=== PATIENT | male | born 1960 | race Caucasian/White ===

== ENCOUNTER 2021-12-25 08:30 | Observation (INO) ==
[~2021-12-25 08:30] MED LIST: *HR* FentaNYL (PF) 100 MCG/2 ML VIAL ONE; *HR* Propofol 200 MG/20 ML VIAL IVP ONE; Lidocaine -MPF 2% 5 ML VIAL ONE
[2021-12-25] MEDS ORDERED: Bupivacaine/EPI 1:200k 0.25% 50 ML VIAL ONE (08:39)
[2021-12-25] MEDS ORDERED: *HR* OxyCODONE Immed Rel 5 MG TABLET PO ONE (08:45)
[2021-12-25] MEDS ORDERED: Famotidine 20 MG TABLET PO ONE (08:45)
[2021-12-25] MEDS ORDERED: tiZANidine 4 MG TABLET PO SCH (09:00)
[2021-12-25] MEDS ORDERED: *HR* Rocuronium Bromide 50 MG/5 ML VIAL ONE (09:01)
[2021-12-25] MEDS ORDERED: *HR* Remifentanil 1 MG VIAL IVP ONE (09:01)
[2021-12-25] MEDS ORDERED: Promethazine 6.25 MG in Water for inj. (sterile) 20 ML IVPB PRN (09:10)
[2021-12-25] MEDS ORDERED: Ondansetron 4 MG/2 ML VIAL IVP PRN ×2 (09:10→12:40)
[2021-12-25] MEDS ORDERED: *HR* HYDROmorphone PF 0.5 MG/0.5 ML SYRINGE IVP PRN (09:10)
[2021-12-25] MEDS ORDERED: Albuterol 2.5 MG/3 ML NEBULIZER IH PRN (09:10)
[2021-12-25] MEDS ORDERED: *HR* OxyCODONE Immed Rel 5 MG TABLET PO PRN (09:10)
[2021-12-25] MEDS ORDERED: *HR* Labetalol 20 MG/4 ML SYRINGE IVP PRN (09:10)
[2021-12-25] MEDS ORDERED: CeFAZolin Syr 2,000MG/20 ML 2,000 MG/20 ML SYRINGE IVPB ONE (09:20)
[2021-12-25] MEDS ORDERED: Albuterol 2.5 MG/3 ML NEBULIZER IH ONE (09:20)
[2021-12-25] MEDS ORDERED: Ondansetron 4 MG/2 ML VIAL ONE (09:23)
[2021-12-25] MEDS ORDERED: Ringers Solution, Lactated 1,000 ML IVC SCH ×2 (09:30→12:40)
[2021-12-25 11:53] LABS: Basophils # 0.1 K/mcL (0.0-0.2); Basophils % 0.7 %; Eosinophils # 0.1 K/mcL (0.0-0.6); Eosinophils % 1.3 %; Hematocrit 46.5 % (37.5-50.1); Hemoglobin 15.3 g/dL (12.9-16.9); Immature Granulocytes % 0.5 % (0-4); Lymphocytes # 2.3 K/mcL (0.6-4.6); Lymphocytes % 30.4 %; Mean Corpuscular HGB Conc 32.9 g/dL (31.6-35.5); Mean Corpuscular Hemoglobin 30.4 pg (28.0-33.3); Mean Corpuscular Volume 92.3 fL (83.0-100.0); Mean Platelet Volume 10.3 fL (9.4-12.4); Monocytes # 0.6 K/mcL (0.0-1.3); Monocytes % 8.1 %; Neutrophils # 4.4 K/mcL (1.6-8.9); Platelet Count 201 K/mcL (140-400); Red Blood Count 5.04 M/mcL (4.19-5.50); Red Cell Distribution Width 13.4 % (11.5-14.5); White Blood Count 7.5 K/mcL (4.3-11.1)
[2021-12-25] MEDS ORDERED: Polymyxin B Sulfate 500,000 UNIT, Sodium Chloride IRRigation 1,000 ML IR ONE (12:00)
[2021-12-25] MEDS ORDERED: Aspirin 81 MG TAB.CHEW PO ONE (12:39)
[2021-12-25] MEDS ORDERED: Perflutren Lipid Microsphere 1.3 ML in 0.9 % Sodium Chloride 8.7 ML IVP PRN (12:40)
[2021-12-25] MEDS ORDERED: DilTIAZem 50 MG/50 ML IV.SOLN IVC SCH (15:00)
[2021-12-25] MEDS ORDERED: Budesonide/Formoterol 160/4.5 1 PUFF INH IH ONE (20:06)
[2021-12-25] MEDS: Budesonide/Formoterol 160/4.5 1 PUFF INH IH SCH (20:10)
[2021-12-25] MEDS: Mirtazapine 15 MG TABLET PO SCH (22:00)
[2021-12-25] MEDS: Pregabalin 75 MG CAPSULE PO SCH (22:00)
[2021-12-25] MEDS: Baclofen 10 MG TABLET PO SCH (22:01)
[2021-12-25] MEDS: Carbamide Peroxide 150 DROP/15 ML BOTTLE BOTH EARS SCH (22:01)
[2021-12-26] MEDS: Budesonide/Formoterol 160/4.5 1 PUFF INH IH SCH ×2 (07:30→22:22)
[2021-12-26] MEDS: Tiotropium 10 INH DOSE IH SCH (07:32)
[2021-12-26 07:54] LABS: Basophils % 0.5 %; Eosinophils # 0.2 K/mcL (0.0-0.6); Hematocrit 46.5 % (37.5-50.1); Hemoglobin 15.8 g/dL (12.9-16.9); Immature Granulocytes % 0.5 % (0-4); Lymphocytes # 2.7 K/mcL (0.6-4.6); Lymphocytes % 35.2 %; Mean Corpuscular Hemoglobin 30.6 pg (28.0-33.3); Mean Corpuscular Volume 89.9 fL (83.0-100.0); Mean Platelet Volume 10.6 fL (9.4-12.4); Monocytes # 0.7 K/mcL (0.0-1.3); Monocytes % 9.6 %; Neutrophils # 3.9 K/mcL (1.6-8.9); Platelet Count 228 K/mcL (140-400); Red Blood Count 5.17 M/mcL (4.19-5.50); Red Cell Distribution Width 13.3 % (11.5-14.5); Segmented Neutrophils % 52.2 %; White Blood Count 7.5 K/mcL (4.3-11.1)
[2021-12-26 08:10] LABS: Alanine Aminotransferase 15 Units/L (7-52); Albumin 4.2 g/dL (3.5-5.7); Albumin/Globulin Ratio 1.9 (1.1-2.2); Alkaline Phosphatase 100 Units/L (34-104); Aspartate Amino Transferase 11 Units/L (13-39); BUN/Creatinine Ratio 11 (6-26); Bilirubin,Total 0.5 mg/dL (0.3-1.0); Blood Urea Nitrogen 9 mg/dL (8-23); Calcium 9.3 mg/dL (8.6-10.3); Carbon Dioxide 24 mEq/L (23-29); Chloride 107 mEq/L (98-107); Cholesterol 130 mg/dL (< 200); Globulin 2.2 g/dL (2.4-3.5); Glucose 98 mg/dL (70-105); HDL Cholesterol 26 mg/dL (40-59); LDL Cholesterol,Calculated 74 mg/dL (< 100); Osmolality,Calculated 285 (280-300); Potassium 4.2 mEq/L (3.5-5.1); Sodium 138 mEq/L (136-145); Total Protein 6.4 g/dL (6.4-8.9); Triglycerides 151 mg/dL (< 150); eGFR For African Americans > 60 (> 60); eGFR For Non-African Americans > 60 (> 60)
[2021-12-26] MEDS: Aspirin 81 MG TAB.CHEW PO SCH (09:26)
[2021-12-26] MEDS: Baclofen 10 MG TABLET PO SCH ×2 (09:26→20:07)
[2021-12-26] MEDS: Pregabalin 75 MG CAPSULE PO SCH ×2 (09:27→20:05)
[2021-12-26] MEDS: Furosemide 20 MG TABLET PO SCH (09:27)
[2021-12-26] MEDS: Famotidine 20 MG TABLET PO SCH (09:27)
[2021-12-26] MEDS ORDERED: Naloxone 0.4 MG/ML INJ IVP PRN (09:58)
[2021-12-26] MEDS: Carbamide Peroxide 150 DROP/15 ML BOTTLE BOTH EARS SCH ×2 (17:11→20:07)
[2021-12-26] MEDS: Mirtazapine 15 MG TABLET PO SCH (20:05)
[2021-12-27 05:09] LABS: Basophils # 0.1 K/mcL (0.0-0.2); Basophils % 0.8 %; Eosinophils # 0.1 K/mcL (0.0-0.6); Eosinophils % 1.6 %; Hematocrit 47.4 % (37.5-50.1); Hemoglobin 16.1 g/dL (12.9-16.9); Immature Granulocytes % 0.8 % (0-4); Lymphocytes # 2.8 K/mcL (0.6-4.6); Lymphocytes % 33.2 %; Mean Corpuscular Hemoglobin 30.4 pg (28.0-33.3); Mean Corpuscular Volume 89.6 fL (83.0-100.0); Mean Platelet Volume 10.1 fL (9.4-12.4); Monocytes # 0.9 K/mcL (0.0-1.3); Monocytes % 10.3 %; Neutrophils # 4.5 K/mcL (1.6-8.9); Platelet Count 217 K/mcL (140-400); Red Blood Count 5.29 M/mcL (4.19-5.50); Red Cell Distribution Width 13.2 % (11.5-14.5); Segmented Neutrophils % 53.3 %; White Blood Count 8.5 K/mcL (4.3-11.1)
[2021-12-27 05:28] LABS: BUN/Creatinine Ratio 18 (6-26); Blood Urea Nitrogen 14 mg/dL (8-23); Calcium 9.2 mg/dL (8.6-10.3); Carbon Dioxide 22 mEq/L (23-29); Chloride 106 mEq/L (98-107); Glucose 102 mg/dL (70-105); Magnesium 2.2 mg/dL (1.6-2.6); Osmolality,Calculated 281 (280-300); Sodium 135 mEq/L (136-145); eGFR For African Americans > 60 (> 60); eGFR For Non-African Americans > 60 (> 60)
[2021-12-27] MEDS ORDERED: *HR* Enoxaparin 40 MG/0.4 ML SYRINGE SQ SCH (07:00)
[2021-12-27] MEDS: Tiotropium 10 INH DOSE IH SCH (07:19)
[2021-12-27] MEDS: Budesonide/Formoterol 160/4.5 1 PUFF INH IH SCH (07:19)
[2021-12-27 07:21] VITALS: O2SAT 94
[2021-12-27] MEDS: Baclofen 10 MG TABLET PO SCH (09:35)
[2021-12-27] MEDS: Pregabalin 75 MG CAPSULE PO SCH (09:35)
[2021-12-27] MEDS: Furosemide 20 MG TABLET PO SCH (09:36)
[2021-12-27] MEDS: Aspirin 81 MG TAB.CHEW PO SCH (09:36)
[2021-12-27] MEDS: Famotidine 20 MG TABLET PO SCH (09:36)
[2021-12-27] MEDS: Carbamide Peroxide 150 DROP/15 ML BOTTLE BOTH EARS SCH (09:37)
[2021-12-27] MEDS ORDERED: Miconazole 2% ointment 141 APPL/141 GM TUBE TP PRN (10:57)
[2021-12-27] MEDS ORDERED: Sennosides/Docusate Sodium TABLET PO PRN (10:57)
[2021-12-27] MEDS ORDERED: GuaiFENesin Liq 200 MG/10 ML UDC PO PRN (10:57)
[2021-12-27] MEDS ORDERED: Lidocaine 5% OINT 35 APPL/35.44 GM TUBE TP PRN (10:57)
[2021-12-27 11:14] VITALS: BP 122/80; PULSE 96; TEMP 97.4
[2021-12-27] MEDS ORDERED: Artificial Tears SOLN 15 ML BOTTLE BOTH EYES SCH (15:00)
[2021-12-27] MEDS ORDERED: VITAMIN D3 PO SCH (21:00)
[2021-12-27] MEDS ORDERED: [UNRECOGNIZED DRUG - OTHER] PO SCH (21:00)
[2021-12-27] MEDS ORDERED: CALCIUM CITRATE PO SCH (21:00)
[2021-12-27] MEDS ORDERED: Baclofen 10 MG TABLET PO SCH (21:00)
[2021-12-27] MEDS ORDERED: Fluticasone Propionate Nasal 50 MCG/SPRAY BOTTLE NS SCH (21:00)
[2021-12-28] MEDS ORDERED: Cholecalciferol (D-3) 1,000 UNIT (25MCG) TABLET PO SCH (09:00)
[2021-12-28] MEDS ORDERED: Cyanocobalamin (B-12) 1,000 MCG TABLET PO SCH (09:00)
[2021-12-28] MEDS ORDERED: lisinopriL 20 MG TABLET PO SCH (09:00)
[2021-12-28] MEDS ORDERED: Ascorbic Acid 500 MG TABLET PO SCH (09:00)
[2021-12-28] MEDS ORDERED: Loratadine 10 MG TABLET PO SCH (09:00)
[2021-12-28] MEDS ORDERED: Venlafaxine XR (24 HR) 75 MG CAP.ER.24H PO SCH (09:00)
== END 2021-12-27 15:27 | disposition home or self-care (01) ==
LOC: SUATTDRO → 4WAOSI 08:30 → SDCAOSI 08:30 → 4WAOSI 12:09
PROVIDERS: ADMIT Pharmacist; ATTEND Pharmacist

== ENCOUNTER 2022-01-31 05:59 | Inpatient (IN) ==
[2022-01-31] MEDS ORDERED: CeFAZolin Syr 2,000MG/20 ML 2,000 MG/20 ML SYRINGE IVPB ONE (06:13)
[2022-01-31] MEDS ORDERED: Albuterol 2.5 MG/3 ML NEBULIZER IH PRN (06:13)
[2022-01-31] MEDS ORDERED: Ringers Solution, Lactated 1,000 ML IVC SCH (06:15)
[2022-01-31] MEDS ORDERED: *HR* HYDROmorphone PF 0.5 MG/0.5 ML SYRINGE IVP PRN (06:45)
[2022-01-31] MEDS ORDERED: *HR* FentaNYL (PF) 100 MCG/2 ML VIAL IVP PRN (06:45)
[2022-01-31] MEDS ORDERED: Ondansetron 4 MG/2 ML VIAL IVP PRN ×2 (06:45→18:11)
[2022-01-31] MEDS ORDERED: Pregabalin 75 MG CAPSULE PO ONE (07:00)
[2022-01-31] MEDS ORDERED: *HR* OxyCODONE Immed Rel 5 MG TABLET PO ONE (07:00)
[2022-01-31] MEDS ORDERED: tiZANidine 4 MG TABLET PO ONE (07:00)
[2022-01-31] MEDS ORDERED: *HR* Rocuronium Bromide 50 MG/5 ML VIAL ONE (07:13)
[2022-01-31] MEDS ORDERED: *HR* Succinylcholine 200 MG/10 ML VIAL IVP ONE (07:13)
[2022-01-31] MEDS ORDERED: Ondansetron 4 MG/2 ML VIAL ONE (07:13)
[2022-01-31] MEDS ORDERED: Lidocaine -MPF 2% 5 ML VIAL ONE (07:13)
[2022-01-31] MEDS ORDERED: *HR* FentaNYL (PF) 100 MCG/2 ML VIAL ONE ×3 (07:16→11:45)
[2022-01-31] MEDS ORDERED: *HR* Propofol 200 MG/20 ML VIAL IVP ONE ×2 (07:16→11:38)
[2022-01-31] MEDS ORDERED: Bupivacaine/EPI 1:200k 0.25% 50 ML VIAL ONE (07:16)
[2022-01-31] MEDS ORDERED: *HR* Remifentanil 2 MG VIAL IVP ONE ×3 (07:18→13:02)
[2022-01-31] MEDS ORDERED: *HR* Phenylephrine 10 MG/ML VIAL ONE (07:22)
[2022-01-31] MEDS ORDERED: Heparin 1,000 UNITS/500 mL 500 ML ONE (07:28)
[2022-01-31] MEDS ORDERED: Gentamicin 80 MG/2 ML VIAL ONE (07:34)
[2022-01-31] MEDS ORDERED: Vancomycin 1,000 MG VIAL ONE (07:35)
[2022-01-31] MEDS ORDERED: Polymyxin B Sulfate 500,000 UNIT, Sodium Chloride IRRigation 1,000 ML IR ONE (07:45)
[2022-01-31] MEDS ORDERED: EPHEDrine 50 MG/ML VIAL ONE (08:20)
[2022-01-31] MEDS ORDERED: Sugammadex Sodium 200 MG/2 ML VIAL IV ONE (08:39)
[2022-01-31] MEDS ORDERED: *HR* Labetalol 20 MG/4 ML SYRINGE IVP ONE ×2 (11:53→14:22)
[2022-01-31] MEDS ORDERED: dexmedeTOMIDine in 0.9 % NaCL 80 MCG/20 ML MLS ONE (15:12)
[2022-01-31] MEDS ORDERED: *HR* OxyCODONE Immed Rel 5 MG TABLET PO PRN (15:20)
[2022-01-31] MEDS: *HR* HYDROmorphone PF 0.5 MG/0.5 ML SYRINGE IVP PRN ×3 (15:21→16:00)
[2022-01-31] MEDS ORDERED: Haloperidol Lactate 5 MG/ML VIAL ONE (15:24)
[2022-01-31] MEDS: *HR* FentaNYL (PF) 100 MCG/2 ML VIAL IVP PRN ×2 (15:37→15:50)
[2022-01-31] MEDS ORDERED: Naloxone 0.4 MG/ML INJ IVP PRN (18:11)
[2022-01-31] MEDS ORDERED: Sennosides 8.6 MG TABLET PO PRN (18:11)
[2022-01-31] MEDS ORDERED: GuaiFENesin Liq 200 MG/10 ML UDC PO PRN (18:19)
[2022-01-31] MEDS: Ringers Solution, Lactated 1,000 ML IVC SCH (18:26)
[2022-01-31] MEDS: Acetaminophen 325 MG TABLET PO SCH ×2 (18:34→23:04)
[2022-01-31] MEDS: *HR* OxyCODONE Immed Rel 5 MG TABLET PO PRN (18:34)
[2022-01-31] MEDS: tiZANidine 4 MG TABLET PO SCH (18:34)
[2022-01-31] MEDS: CeFAZolin 2 GM/120 ML BAG IVPB SCH (20:34)
[2022-01-31] MEDS: Baclofen 10 MG TABLET PO SCH (20:41)
[2022-01-31] MEDS: Mirtazapine 15 MG TABLET PO SCH (20:41)
[2022-01-31] MEDS: Pregabalin 75 MG CAPSULE PO SCH (20:41)
[2022-01-31] MEDS: Budesonide/Formoterol 160/4.5 1 PUFF INH IH SCH ×2 (21:14→21:21)
[2022-01-31] MEDS: *HR* HYDROcodone/Acet 5/325 mg TABLET PO PRN (23:03)
[2022-02-01] MEDS ORDERED: *HR* HYDROmorphone 2 MG/ML SYRINGE IVP ONE (00:25)
[2022-02-01] MEDS: Budesonide/Formoterol 160/4.5 1 PUFF INH IH SCH ×2 (00:55→10:52)
[2022-02-01] MEDS: *HR* OxyCODONE Immed Rel 5 MG TABLET PO PRN ×3 (02:41→20:51)
[2022-02-01 02:59] LABS: Basophils % 0.1 %; Hematocrit 38.6 % (37.5-50.1); Immature Granulocytes % 0.6 % (0-4); Lymphocytes # 1.9 K/mcL (0.6-4.6); Lymphocytes % 9.6 %; Mean Corpuscular HGB Conc 34.2 g/dL (31.6-35.5); Mean Corpuscular Hemoglobin 30.5 pg (28.0-33.3); Mean Corpuscular Volume 89.1 fL (83.0-100.0); Mean Platelet Volume 11.3 fL (9.4-12.4); Monocytes # 1.6 K/mcL (0.0-1.3); Monocytes % 7.8 %; Neutrophils # 16.3 K/mcL (1.6-8.9); Platelet Count 205 K/mcL (140-400); Red Blood Count 4.33 M/mcL (4.19-5.50); Red Cell Distribution Width 13.5 % (11.5-14.5); Segmented Neutrophils % 81.9 %
[2022-02-01 03:00] LABS: Hemoglobin 13.2 g/dL (12.9-16.9); White Blood Count 19.9 K/mcL (4.3-11.1)
[2022-02-01 03:08] LABS: BUN/Creatinine Ratio 11 (6-26); Blood Urea Nitrogen 8 mg/dL (8-23); Calcium 8.6 mg/dL (8.6-10.3); Carbon Dioxide 23 mEq/L (23-29); Chloride 107 mEq/L (98-107); Glucose 122 mg/dL (70-105); Osmolality,Calculated 288 (280-300); Potassium 4.3 mEq/L (3.5-5.1); Sodium 139 mEq/L (136-145); eGFR For African Americans > 60 (> 60); eGFR For Non-African Americans > 60 (> 60)
[2022-02-01] MEDS: Ringers Solution, Lactated 1,000 ML IVC SCH ×3 (05:23→22:34)
[2022-02-01] MEDS: Furosemide 20 MG TABLET PO SCH (08:21)
[2022-02-01] MEDS: tiZANidine 4 MG TABLET PO SCH ×3 (08:21→20:52)
[2022-02-01] MEDS: lisinopriL 20 MG TABLET PO SCH (08:21)
[2022-02-01] MEDS: Pregabalin 75 MG CAPSULE PO SCH ×2 (08:21→20:50)
[2022-02-01] MEDS: Venlafaxine XR (24 HR) 75 MG CAP.ER.24H PO SCH (08:22)
[2022-02-01] MEDS: Tiotropium 10 INH DOSE IH SCH (10:53)
[2022-02-01] MEDS: Acetaminophen 325 MG TABLET PO SCH ×4 (12:51→22:34)
[2022-02-01] MEDS: Mirtazapine 15 MG TABLET PO SCH (20:51)
[2022-02-01] MEDS: Baclofen 10 MG TABLET PO SCH (20:51)
[2022-02-02] MEDS: *HR* HYDROcodone/Acet 5/325 mg TABLET PO PRN ×2 (01:01→15:51)
[2022-02-02] MEDS: Acetaminophen 325 MG TABLET PO SCH ×4 (05:13→23:55)
[2022-02-02] MEDS: CeFAZolin 2 GM/120 ML BAG IVPB SCH (07:33)
[2022-02-02] MEDS: Tiotropium 10 INH DOSE IH SCH (07:59)
[2022-02-02] MEDS: Budesonide/Formoterol 160/4.5 1 PUFF INH IH SCH ×2 (07:59→21:05)
[2022-02-02] MEDS: Pregabalin 75 MG CAPSULE PO SCH ×2 (08:08→20:51)
[2022-02-02] MEDS: tiZANidine 4 MG TABLET PO SCH ×3 (08:08→23:55)
[2022-02-02] MEDS: *HR* OxyCODONE Immed Rel 5 MG TABLET PO PRN ×2 (08:08→19:41)
[2022-02-02] MEDS: Furosemide 20 MG TABLET PO SCH (08:08)
[2022-02-02] MEDS: lisinopriL 20 MG TABLET PO SCH (08:09)
[2022-02-02] MEDS: Venlafaxine XR (24 HR) 75 MG CAP.ER.24H PO SCH (08:09)
[2022-02-02] MEDS: Ringers Solution, Lactated 1,000 ML IVC SCH ×2 (10:30→20:52)
[2022-02-02] MEDS: Baclofen 10 MG TABLET PO SCH (20:51)
[2022-02-02] MEDS: Mirtazapine 15 MG TABLET PO SCH (20:51)
[2022-02-03] MEDS: Acetaminophen 325 MG TABLET PO SCH ×3 (05:50→19:06)
[2022-02-03] MEDS: Ringers Solution, Lactated 1,000 ML IVC SCH ×2 (05:50→17:12)
[2022-02-03] MEDS: Tiotropium 10 INH DOSE IH SCH (07:54)
[2022-02-03] MEDS: Budesonide/Formoterol 160/4.5 1 PUFF INH IH SCH ×2 (07:56→19:59)
[2022-02-03] MEDS: Venlafaxine XR (24 HR) 75 MG CAP.ER.24H PO SCH (08:41)
[2022-02-03] MEDS: tiZANidine 4 MG TABLET PO SCH ×3 (08:41→20:54)
[2022-02-03] MEDS: Furosemide 20 MG TABLET PO SCH (08:42)
[2022-02-03] MEDS: Pregabalin 75 MG CAPSULE PO SCH ×2 (08:42→20:54)
[2022-02-03] MEDS: lisinopriL 20 MG TABLET PO SCH (08:42)
[2022-02-03] MEDS: *HR* OxyCODONE Immed Rel 5 MG TABLET PO PRN ×2 (08:42→15:13)
[2022-02-03] MEDS: Mirtazapine 15 MG TABLET PO SCH (20:53)
[2022-02-03] MEDS: Baclofen 10 MG TABLET PO SCH (20:53)
[2022-02-04] MEDS: Acetaminophen 325 MG TABLET PO SCH ×5 (00:45→23:47)
[2022-02-04] MEDS: *HR* OxyCODONE Immed Rel 5 MG TABLET PO PRN ×2 (01:58→08:25)
[2022-02-04] MEDS: Ringers Solution, Lactated 1,000 ML IVC SCH ×2 (07:32→13:07)
[2022-02-04] MEDS: Tiotropium 10 INH DOSE IH SCH (07:40)
[2022-02-04] MEDS: Budesonide/Formoterol 160/4.5 1 PUFF INH IH SCH ×2 (07:41→20:16)
[2022-02-04] MEDS: lisinopriL 20 MG TABLET PO SCH (08:25)
[2022-02-04] MEDS: Furosemide 20 MG TABLET PO SCH (08:26)
[2022-02-04] MEDS: tiZANidine 4 MG TABLET PO SCH ×3 (08:26→20:52)
[2022-02-04] MEDS: Pregabalin 75 MG CAPSULE PO SCH ×2 (08:26→20:52)
[2022-02-04] MEDS: Venlafaxine XR (24 HR) 75 MG CAP.ER.24H PO SCH (08:26)
[2022-02-04] MEDS: Mirtazapine 15 MG TABLET PO SCH (20:51)
[2022-02-04] MEDS: Baclofen 10 MG TABLET PO SCH (20:52)
[2022-02-05] MEDS: Acetaminophen 325 MG TABLET PO SCH ×4 (05:03→23:33)
[2022-02-05] MEDS: *HR* OxyCODONE Immed Rel 5 MG TABLET PO PRN ×2 (06:45→19:35)
[2022-02-05] MEDS: Tiotropium 10 INH DOSE IH SCH (07:45)
[2022-02-05] MEDS: Budesonide/Formoterol 160/4.5 1 PUFF INH IH SCH ×2 (07:45→20:24)
[2022-02-05] MEDS: Pregabalin 75 MG CAPSULE PO SCH ×2 (07:51→21:47)
[2022-02-05] MEDS: lisinopriL 20 MG TABLET PO SCH (07:51)
[2022-02-05] MEDS: tiZANidine 4 MG TABLET PO SCH ×3 (07:52→21:47)
[2022-02-05] MEDS: Furosemide 20 MG TABLET PO SCH (07:52)
[2022-02-05] MEDS: Venlafaxine XR (24 HR) 75 MG CAP.ER.24H PO SCH (07:52)
[2022-02-05] MEDS: *HR* HYDROcodone/Acet 5/325 mg TABLET PO PRN (10:48)
[2022-02-05] MEDS: *HR* Heparin 5,000 UNIT/ML VIAL SQ SCH ×2 (12:41→17:49)
[2022-02-05] MEDS: Mirtazapine 15 MG TABLET PO SCH (21:46)
[2022-02-05] MEDS: Baclofen 10 MG TABLET PO SCH (21:47)
[2022-02-06] MEDS: *HR* OxyCODONE Immed Rel 5 MG TABLET PO PRN ×2 (03:01→09:02)
[2022-02-06] MEDS: *HR* Heparin 5,000 UNIT/ML VIAL SQ SCH ×2 (05:06→18:17)
[2022-02-06] MEDS: Acetaminophen 325 MG TABLET PO SCH ×3 (05:06→18:17)
[2022-02-06] MEDS: Pregabalin 75 MG CAPSULE PO SCH ×2 (08:46→19:59)
[2022-02-06] MEDS: Venlafaxine XR (24 HR) 75 MG CAP.ER.24H PO SCH (08:46)
[2022-02-06] MEDS: lisinopriL 20 MG TABLET PO SCH (08:46)
[2022-02-06] MEDS: tiZANidine 4 MG TABLET PO SCH ×3 (08:46→19:59)
[2022-02-06] MEDS: Furosemide 20 MG TABLET PO SCH (08:46)
[2022-02-06] MEDS: Tiotropium 10 INH DOSE IH SCH (15:08)
[2022-02-06] MEDS: Budesonide/Formoterol 160/4.5 1 PUFF INH IH SCH ×2 (15:09→20:31)
[2022-02-06] MEDS: Baclofen 10 MG TABLET PO SCH (19:59)
[2022-02-06] MEDS: Mirtazapine 15 MG TABLET PO SCH (19:59)
[2022-02-07] MEDS: *HR* HYDROcodone/Acet 5/325 mg TABLET PO PRN (03:29)
[2022-02-07] MEDS: *HR* Heparin 5,000 UNIT/ML VIAL SQ SCH (05:30)
[2022-02-07] MEDS: Acetaminophen 325 MG TABLET PO SCH ×3 (05:30→11:58)
[2022-02-07] MEDS: Tiotropium 10 INH DOSE IH SCH (08:11)
[2022-02-07] MEDS: Budesonide/Formoterol 160/4.5 1 PUFF INH IH SCH (08:11)
[2022-02-07] MEDS: Pregabalin 75 MG CAPSULE PO SCH (10:00)
[2022-02-07] MEDS: lisinopriL 20 MG TABLET PO SCH (10:01)
[2022-02-07] MEDS: Venlafaxine XR (24 HR) 75 MG CAP.ER.24H PO SCH (10:01)
[2022-02-07] MEDS: Furosemide 20 MG TABLET PO SCH (10:02)
[2022-02-07] MEDS: tiZANidine 4 MG TABLET PO SCH (10:02)
[2022-02-07] MEDS: *HR* OxyCODONE Immed Rel 5 MG TABLET PO PRN (10:02)
[2022-02-07 11:08] LABS: Influenza A PCR Negative (Negative); Influenza B PCR Negative (Negative); Resp. Syncytial Virus PCR Negative (Negative)
[2022-02-07 11:09] VITALS: BP 152/72; PULSE 81; TEMP 97.8; O2SAT 94
[2022-02-07 11:09] LABS: SARS-CoV-2 by PCR (In House) Negative (Negative)
== END 2022-02-07 14:13 | DRG 460 ==
LOC: SDCAOSI 05:59 → 3NENU 05:59 → 4WAOSI 02-03 23:28
PROVIDERS: ADMIT Student in an Organized Health Care Education/Training Program; ATTEND Student in an Organized Health Care Education/Training Program